=== PATIENT | male | born 1945 | race African-American/Black ===

== ENCOUNTER 2016-10-29 12:37 | Observation (INO) | payer MEDICAID, MEDICARE, OTHER ==
[~2016-10-29] VITALS: Ht 177.8 cm; Wt 86.2 kg
[~2016-10-29 12:37] MED LIST: AMLODIPINE; ASPIRIN; ATORVASTATIN; CALCIUM ACETATE; CARVEDILOL; HYDRALAZINE
[2016-10-29 13:19] LABS: HEMATOCRIT. 40.5 % (42.0-52.0); HEMOGLOBIN. 12.8 g/dL (14.0-18.0); MEAN CORPUSCULAR HEMOGLOBIN 27.4 pg (28.0-32.0); MEAN CORPUSCULAR VOLUME 86.4 fL (80.0-94.0); MEAN PLATELET VOLUME 8.9 fl (7.4-10.4); PLATELET 135 x1000/uL (130-400); RED BLOOD CELL COUNT 4.68 mill/uL (4.7-6.1); RED CELL DISTRIBUTION WIDTH 15.9 % (11.6-14.6)
[2016-10-29 13:40] LABS: INR 1.2; PROTHROMBIN TIME 12.4 sec
[2016-10-29 13:59] LABS: PLATELET ESTIMATE NORMAL
[2016-10-29 14:14] LABS: PARTIAL THROMBOPLASTIN TIME > 200.0 sec (24.0-34.0)
[2016-10-29 16:30] VITALS: BP 132/81
[2016-10-29] MEDS ORDERED: OXYCODONE HCL/ACETAMINOPHEN 5/325MG TABLET PO ONE (16:30)
[2016-10-29 16:45] VITALS: BP 132/81
[2016-10-29] MEDS ORDERED: ACETAMINOPHEN 650MG/20.3ML UDC PO PRN (18:45)
[2016-10-29 20:00] VITALS: BP 136/79
[2016-10-29] MEDS ORDERED: MORPHINE SULFATE 2 MG/ML CPJ (NOT FOR IM USE) IV PRN (20:30)
[2016-10-29 21:23] LABS: BASOPHILS % 2.8 % (0.0-2.0); EOSINOPHILS % 3.7 % (0.0-5.0); HEMATOCRIT. 37.7 % (42.0-52.0); LYMPHOCYTES % 32.7 % (20.0-50.0); MEAN CORPUSCULAR HEMOGLOBIN 27.5 pg (28.0-32.0); MEAN CORPUSCULAR VOLUME 86.4 fL (80.0-94.0); MEAN PLATELET VOLUME 8.8 fl (7.4-10.4); MONOCYTES % 13.3 % (2.0-8.0); NEUTROPHILS % 47.5 % (40.0-76.0); PLATELET 115 x1000/uL (130-400); RED BLOOD CELL COUNT 4.37 mill/uL (4.7-6.1); RED CELL DISTRIBUTION WIDTH 16.4 % (11.6-14.6)
[2016-10-29] MEDS ORDERED: BISACODYL 5MG TABLET PO PRN (23:45)
[2016-10-30] VITALS: BP 129/69
[2016-10-30] MEDS: MORPHINE SULFATE 2 MG/ML CPJ (NOT FOR IM USE) IV PRN ×3 (02:54→14:24)
[2016-10-30 04:00] VITALS: BP 135/76
[2016-10-30 06:33] LABS: CARBON DIOXIDE 27 mEq/L (21-32); CHLORIDE 95 mEq/L (98-107); HDL CHOLESTEROL 35 mg/dL (40-59); LDL CHOLESTEROL 41 mg/dL (5-100)
[2016-10-30 07:15] LABS: BASOPHILS % 2.5 % (0.0-2.0); EOSINOPHILS % 5.6 % (0.0-5.0); HEMATOCRIT. 36.4 % (42.0-52.0); HEMOGLOBIN. 11.6 g/dL (14.0-18.0); LYMPHOCYTES % 36.8 % (20.0-50.0); MEAN CORPUSCULAR HEMOGLOBIN 27.6 pg (28.0-32.0); MEAN CORPUSCULAR VOLUME 86.8 fL (80.0-94.0); MEAN PLATELET VOLUME 9.1 fl (7.4-10.4); MONOCYTES % 14.2 % (2.0-8.0); NEUTROPHILS % 40.9 % (40.0-76.0); PLATELET 119 x1000/uL (130-400); RED BLOOD CELL COUNT 4.19 mill/uL (4.7-6.1); RED CELL DISTRIBUTION WIDTH 16.1 % (11.6-14.6)
[2016-10-30 08:00] VITALS: BP 142/80
[2016-10-30] MEDS: LACTULOSE 20G/30ML UDC PO SCH ×2 (08:09→13:51)
[2016-10-30 12:00] VITALS: BP 129/81
[2016-10-30 16:00] VITALS: BP 143/84
[2016-10-30 16:36] VITALS: BP 145/91
== END 2016-10-30 17:02 | disposition home or self-care (01) ==
LOC: ER 12:37 → INTOOBSV 14:10 → 6EST 14:10 → EDBEDREQ 14:24 → ENRESERV 16:02
PROVIDERS: ADMIT Internal Medicine; ATTEND Internal Medicine
DX: T82.838A Hemorrhage due to vascular prosthetic devices, implants and grafts, initial encounter (principal); E11.22 Type 2 diabetes mellitus with diabetic chronic kidney disease; I12.0 Hypertensive chronic kidney disease with stage 5 chronic kidney disease or end stage renal disease; N18.6 End stage renal disease; G89.29 Other chronic pain; M54.5 Low back pain; Z99.2 Dependence on renal dialysis; F17.210 Nicotine dependence, cigarettes, uncomplicated; Y84.1 Kidney dialysis as the cause of abnormal reaction of the patient, or of later complication, without mention of misadventure at the time of the procedure; Y92.89 Other specified places as the place of occurrence of the external cause
CPT/HCPCS: 36415; 71010; 80048; 80053; 80061; 83735; 84100; 84443; 85025; 85610; 85730; 86850; 86900; 86901; 93005; 96374; 96376; 99285; G0378; J2270; J7030; 99281